=== PATIENT | male | born 1995 | race Two or more races ===

== ENCOUNTER 2019-12-22 22:40 | Emergency (ER) | payer SELFPAY ==
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
== END 2019-12-22 23:30 | disposition home or self-care (01) ==
LOC: JD.ED 22:40
CPT/HCPCS: 99282; 99283

== ENCOUNTER 2020-01-18 06:32 | Emergency (ER) | payer SELFPAY ==
[2020-01-18] MEDS ORDERED: Amoxicillin 500 MG Cap PO ONE (07:17)
[2020-01-18] MEDS ORDERED: Acetaminophen/HYDROcodone 325-5 MG Tab PO ONE (07:17)
--- NOTE | 2020-01-18 07:32 | EDM.PDOC ---
ED HPI GENERAL MEDICAL PROBLEM - General Chief Complaint: ENT Problem Stated Complaint: TOOTH PAIN Time Seen by Provider: 01/18/20 07:01 Source of Information: Reports: Patient, RN Notes Reviewed - History of Present Illness INITIAL COMMENTS - FREE TEXT/NARRATIVE: 24 year old male comes in with dental pain. L lower molar has been giving him trouble for the past month or so. Has become very severe yesterday and today. Has not seen a dentist. Left Lower Tooth/Teeth Pain Score (Numeric/FACES): 10 - Related Data Allergies Allergy/AdvReac Type Severity Reaction Status Date / Time No Known Allergies Allergy Verified 01/18/20 06:40 Home Meds: Home Meds Acetaminophen/HYDROcodone [[place] 325-5 MG] 1 tab PO Q6H PRN #14 tablet 01/18/20 [Rx] Amoxicillin 500 mg PO QID #30 capsule 01/18/20 [Rx] Ibuprofen [Motrin] 800 mg PO 01/18/20 [History] Past Medical History - Past Health History Medical/Surgical History: Denies Medical/Surgical History Social & Family History - Family History Family Medical History: Noncontributory - Tobacco Use Smoking Status *Q: Current Every Day Smoker Years of Tobacco use: 10 Packs/Tins Daily: 0.7 - Caffeine Use Caffeine Use: Reports: None - Recreational Drug Use Recreational Drug Use: No ED ROS ENT - Review of Systems Review Of Systems: See Below Constitutional: Denies: Fever HEENT: Reports: Dental Pain Respiratory: Reports: No Symptoms Cardiovascular: Reports: No Symptoms GI/Abdominal: Reports: No Symptoms Skin: Reports: No Symptoms Neurological: Reports: No Symptoms ED EXAM, ENT - Physical Exam Exam: See Below General Appearance: Alert, Moderate Distress Mouth/Throat: Dental Pain (L lower 2nd molar cavitated) Head: No: Facial Swelling Neck: Supple Respiratory/Chest: No Respiratory Distress, Lungs Clear Extremities: Normal Inspection Neurological: Alert, Oriented, No Motor/Sensory Deficits Skin: Warm, Dry, Normal Color Course - Vital Signs Last Recorded V/S: Last Vital Signs Temp 97.4 F 01/18/20 06:40 Pulse 74 01/18/20 07:45 Resp 19 01/18/20 07:45 BP 127/66 01/18/20 07:45 Pulse Ox 98 01/18/20 07:45 - Orders/Labs/Meds Meds: Medications Discontinued Medications Generic Name Dose Route Start Last Admin Trade Name Freq PRN Reason Stop Dose Admin Hydrocodone Bitart/Acetaminophen 1 tab 01/18/20 07:17 01/18/20 07:43 [place] 325-5 Mg PO 01/18/20 07:18 1 tab ONETIME ONE Administration Amoxicillin 1,000 mg 01/18/20 07:17 01/18/20 07:43 Amoxil PO 01/18/20 07:18 1,000 mg ONETIME ONE Administration Departure - Departure Time of Disposition: 07:26 Disposition: Home, Self-Care 01 Clinical Impression: Dental caries - Discharge Information Prescriptions: Acetaminophen/HYDROcodone [[place] 325-5 MG] 1 tab PO Q6H PRN #14 tablet PRN Reason: Pain Amoxicillin 500 mg PO QID #30 capsule Instructions: Dental Abscess, [id number], Diet and Dental Disease Referrals: PCP,None [Primary Care Provider] - Forms: ED Department Discharge Additional Instructions: Amoxicillin 500 mg 4 times daily, alternate tylenol and ibuprofen for mild to moderate pain or alternate hydrocodone and ibuprophen for severe pain. [facility] See dentist as soon as possible. Sepsis Event Note - Evaluation Sepsis Screening Result: No Definite Risk - Focused Exam Vital Signs: Vital Signs Temp Pulse Resp BP Pulse Ox 01/18/20 07:45 74 19 127/66 98 01/18/20 06:40 97.4 F 76 20 130/80 100 Date Exam was Performed: 01/18/20 Time Exam was Performed: 08:02
== END 2020-01-18 07:45 | disposition home or self-care (01) ==
LOC: JD.ED 06:32
DX: K02.9 Dental caries, unspecified (principal); F17.210 Nicotine dependence, cigarettes, uncomplicated
CPT/HCPCS: 99282; A9270; 99283

== ENCOUNTER 2020-02-14 22:53 | Emergency (ER) | payer SELFPAY ==
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
[2020-02-14] MEDS ORDERED: Ketorolac 30 MG/ML SDV IM ONE (23:50)
--- NOTE | 2020-02-15 08:31 | CR ---
Cervical spine: AP, lateral and odontoid views of the cervical spine were obtained. Comparison: No prior cervical spine imaging. Vertebral body heights and disc spaces are maintained. Prevertebral soft tissues are normal. No subluxation or fracture is identified. Impression: 1. No abnormality is identified on 3 view cervical spine exam. Diagnostic code #1 This report was dictated in MDT
== END 2020-02-15 00:05 | disposition home or self-care (01) ==
LOC: JD.ED 22:53
DX: M54.2 Cervicalgia (principal); R03.0 Elevated blood-pressure reading, without diagnosis of hypertension; Z71.6 Tobacco abuse counseling; F17.210 Nicotine dependence, cigarettes, uncomplicated
CPT/HCPCS: 72040; 72040-26; 96372; 99283-25; J1885

== ENCOUNTER 2020-02-25 17:32 | Emergency (ER) | payer OTHER, MEDICAID ==
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
== END 2020-02-25 18:12 | disposition home or self-care (01) ==
LOC: JD.ED 17:32
DX: S16.1XXA Strain of muscle, fascia and tendon at neck level, initial encounter (principal); S39.012A Strain of muscle, fascia and tendon of lower back, initial encounter; F41.0 Panic disorder [episodic paroxysmal anxiety]; Z79.899 Other long term (current) drug therapy; V43.52XA Car driver injured in collision with other type car in traffic accident, initial encounter; Y92.488 Other paved roadways as the place of occurrence of the external cause
CPT/HCPCS: 99282; 99284

== ENCOUNTER 2020-10-02 14:36 | Emergency (ER) | payer MEDICAID, OTHER ==
[2020-10-02] MEDS ORDERED: Sodium Chloride 0.9% 10 ML Syringe FLUSH PRN (15:29)
[2020-10-02] MEDS ORDERED: LORazepam 2 MG/ML SDV IVPUSH ONE (15:30)
[2020-10-02] MEDS ORDERED: Sodium Chloride 0.9% 1,000 ML IV ONE (15:30)
[2020-10-02] MEDS ORDERED: Metoclopramide 10 MG/2 ML SDV IVPUSH ONE (15:30)
--- NOTE | 2020-10-02 15:42 | EDM.PDOC ---
ED HPI GENERAL MEDICAL PROBLEM - General Chief Complaint: General Stated Complaint: ABDOMINAL PAIN AND VOMITING Time Seen by Provider: 10/02/20 15:12 Source of Information: Reports: Patient, RN Notes Reviewed History Limitations: Reports: No Limitations - History of Present Illness INITIAL COMMENTS - FREE TEXT/NARRATIVE: Patient is a 24-year-old male who presents to the ED for the evaluation of his ongoing abdomen pain, nausea and vomiting/diarrhea. Patient notes that his girlfriend was seen in this ER earlier this morning with similar symptoms treated and sent home. Patient states that he is feeling short of breath, and has a cough, has tingling throughout his entire body, generalized abdomen pain. He notes he has not been able to keep much down for food or fluids for the past 3 days. He has generalized abdomen pain, and feels generalized weakness as well. He has no regular provider that he sees, and he denies any medical history. He denies any abdomen surgeries. Patient notes he has generalized anxiety but does not take any medications at home for this. He states he is feeling quite anxious at today's visit. Abdomen Pain Score (Numeric/FACES): 10 - Related Data Allergies Allergy/AdvReac Type Severity Reaction Status Date / Time No Known Allergies Allergy Verified 02/25/20 17:45 Home Meds: Home Meds predniSONE [Prednisone] 40 mg PO DAILY 02/25/20 [History] Metoclopramide HCl [Reglan] 10 mg PO QID PRN #20 tablet 10/02/20 [Rx] Past Medical History Musculoskeletal History: Reports: Back Pain, Chronic Psychiatric History: Reports: Anxiety, Panic Attack Social & Family History - Family History Family Medical History: No Pertinent Family History - Tobacco Use Tobacco Use Status *Q: Current Every Day Tobacco User Years of Tobacco use: 5 Packs/Tins Daily: 1 - Caffeine Use Caffeine Use: Reports: None - Recreational Drug Use Recreational Drug Use: No - Living Situation & Occupation Living situation: Reports: Single Occupation: Employed ED ROS GENERAL - Review of Systems Review Of Systems: Comprehensive ROS is negative, except as noted in HPI. ED EXAM, GENERAL - Physical Exam Exam: See Below Exam Limited By: No Limitations General Appearance: Alert, WD/WN, No Apparent Distress, Anxious (slight generalized anxiety) Respiratory/Chest: No Respiratory Distress, Lungs Clear, Normal Breath Sounds, No Accessory Muscle Use, Chest Non-Tender Cardiovascular: Normal Peripheral Pulses, Regular Rate, Rhythm, No Murmur GI/Abdominal: Normal Bowel Sounds, Soft, Non-Tender, No Distention, No Mass Extremities: Normal Inspection, Normal Capillary Refill Neurological: Alert, Oriented, Normal Cognition, No Motor/Sensory Deficits Psychiatric: Normal Affect, Normal Mood, Anxious (generalized anxiety) Skin Exam: Warm, Dry, Intact, Normal Color, No Rash Course - Vital Signs Last Recorded V/S: Last Vital Signs Temp 97.7 F 10/02/20 15:09 Pulse 65 10/02/20 15:09 Resp BP Pulse Ox 10 L 10/02/20 15:09 - Orders/Labs/Meds Orders: Active Orders 24 hr Category Date Time Status Peripheral IV Care [RC] . DIRECTED Care 10/02/20 15:29 Ordered Sodium Chloride 0.9% [Saline Flush] Med 10/02/20 15:29 Ordered 10 ml FLUSH ASDIRECTED PRN Peripheral IV Insertion Adult [OM.PC] Routine Oth 10/02/20 15:29 Ordered Medication Orders Sodium Chloride (Saline Flush) 10 ml FLUSH ASDIRECTED PRN PRN Reason: Keep Vein Open Last Admin: 10/02/20 16:27 Dose: 10 ml Documented by: HERMMIC Labs: Laboratory Tests 10/02/20 10/02/20 Range/Units 15:45 15:45 WBC 10.09 H (4.23-9.07) K/mm3 RBC 5.31 (4.63-6.08) M/mm3 Hgb 15.6 (13.7-17.5) gm/dl Hct 45.6 (40.1-51.0) % MCV 85.9 (79.0-92.2) fl MCH 29.4 (25.7-32.2) pg MCHC 34.2 (32.2-35.5) g/dl RDW Std Deviation 39.2 (35.1-43.9) fL Plt Count 251 (163-337) K/mm3 MPV 9.1 L (9.4-12.3) fl Neut % (Auto) 74.4 H (34.0-67.9) % Lymph % (Auto) 14.0 L (21.8-53.1) % [place] % (Auto) 9.1 (5.3-12.2) % Eos % (Auto) 2.2 (0.8-7.0) Baso % (Auto) 0.2 (0.1-1.2) % Neut # (Auto) 7.51 H (1.78-5.38) K/mm3 Lymph # (Auto) 1.41 (1.32-3.57) K/mm3 [place] # (Auto) 0.92 H (0.30-0.82) K/mm3 Eos # (Auto) 0.22 (0.04-0.54) K/mm3 Baso # (Auto) 0.02 (0.01-0.08) K/mm3 Manual Slide Review Normal smear Sodium 138 (136-145) mEq/L Potassium 3.4 L (3.5-5.1) mEq/L Chloride 103 (98-107) mEq/L Carbon Dioxide 21 (21-32) mEq/L Anion Gap 17.4 H (5-15) BUN 11 (7-18) mg/dL Creatinine 1.1 (0.7-1.3) mg/dL Est Cr Clr Drug Dosing 89.30 mL/min Estimated GFR (MDRD) > 60 (>60) mL/min BUN/Creatinine Ratio 10.0 L (14-18) Glucose 113 H (74-106) mg/dL Calcium 9.4 (8.5-10.1) mg/dL Magnesium 1.9 (1.8-2.4) mg/dl Total Bilirubin 0.5 (0.2-1.0) mg/dL AST 17 (15-37) U/L ALT 26 (16-63) U/L Alkaline Phosphatase 61 (46-116) U/L Total Protein 7.3 (6.4-8.2) g/dl Albumin 3.7 (3.4-5.0) g/dl Globulin 3.6 gm/dL Albumin/Globulin Ratio 1.0 (1-2) Meds: Medications Generic Name Dose Route Start Last Admin Trade Name Freq PRN Reason Stop Dose Admin Sodium Chloride 10 ml 10/02/20 15:29 10/02/20 16:27 Saline Flush FLUSH 10 ml ASDIRECTED PRN Administration Keep Vein Open Discontinued Medications Generic Name Dose Route Start Last Admin Trade Name Freq PRN Reason Stop Dose Admin Sodium Chloride 1,000 mls @ 999 mls/hr 10/02/20 15:30 10/02/20 15:56 Normal Saline IV 10/02/20 16:30 999 mls/hr ONETIME ONE Administration Lorazepam 1 mg 10/02/20 15:30 10/02/20 15:56 Ativan IVPUSH 10/02/20 15:31 1 mg ONETIME ONE Administration Metoclopramide HCl 10 mg 10/02/20 15:30 10/02/20 15:56 Reglan IVPUSH 10/02/20 15:31 10 mg ONETIME ONE Administration - Re-Assessments/Exams Free Text/Narrative Re-Assessment/Exam: 10/02/20 15:48 Patient presents to the ED for his ongoing GI illness. We will get IV placed along with IV fluids, Reglan, Ativan for initial management and baseline labs for evaluation. 10/02/20 16:31 Patient's labs are unremarkable, nursing states that he was able to rest in the room comfortably with the nausea meds and the Ativan that was given. Plan is to discharge him home with some nausea medications and have him stick to clear liq uid diet for the next few days. Departure - Departure Time of Disposition: 16:33 Disposition: Home, Self-Care 01 Condition: Good Clinical Impression: Gastroenteritis, Anxiety - Discharge Information *PRESCRIPTION DRUG MONITORING PROGRAM REVIEWED*: No *COPY OF PRESCRIPTION DRUG MONITORING REPORT IN PATIENT SHERRELL: No Instructions: Viral Gastroenteritis, Adult, [id number] Referrals: PCP,None [Primary Care Provider] - Forms: ED Department Discharge Additional Instructions: You have been evaluated in the ED for nausea/vomiting/diarrhea. It is likely that this is caused from a viral gastroenteritis. You have received IV fluid in the ED to help with the dehydration from the vomiting and diarrhea. Over the next 24-48 hours please try to limit diet to clear liquids and advance as tolerate to a bland diet to alleviate symptoms of nausea/vomiting/diarrhea. Please use the Reglan (metaclopromide) QID as needed for nausea. Please return to the ED if your symptoms should change or worsen. Sepsis Event Note (ED) - Evaluation Sepsis Screening Result: No Definite Risk - Focused Exam Vital Signs: Vital Signs Temp Pulse Pulse Ox 10/02/20 15:09 97.7 F 65 10 L - My Orders Last 24 Hours: My Active Orders 10/02/20 15:29 Peripheral IV Care [RC] . DIRECTED Sodium Chloride 0.9% [Saline Flush] 10 ml FLUSH ASDIRECTED PRN Peripheral IV Insertion Adult [OM.PC] Routine - Assessment/Plan Last 24 Hours: My Active Orders 10/02/20 15:29 Peripheral IV Care [RC] . DIRECTED Sodium Chloride 0.9% [Saline Flush] 10 ml FLUSH ASDIRECTED PRN Peripheral IV Insertion Adult [OM.PC] Routine
== END 2020-10-02 17:20 | disposition home or self-care (01) ==
LOC: JD.ED 14:36
DX: K52.9 Noninfective gastroenteritis and colitis, unspecified (principal); F41.9 Anxiety disorder, unspecified; F17.210 Nicotine dependence, cigarettes, uncomplicated
CPT/HCPCS: 36415; 80053; 83735; 85025; 96374; 96375; 99284; J2060; J2765; J7030

== ENCOUNTER 2021-10-06 17:27 | Emergency (ER) | payer SELFPAY ==
[2021-10-06] MEDS ORDERED: Ibuprofen 800 MG Tab PO ONE (18:09)
--- NOTE | 2021-10-06 18:15 | EDM.PDOC ---
ED HPI GENERAL MEDICAL PROBLEM - General Chief Complaint: Fever Stated Complaint: FEVER,BODY ACHES,CHILLS Time Seen by Provider: 10/06/21 17:43 Source of Information: Reports: Patient History Limitations: Reports: No Limitations - History of Present Illness INITIAL COMMENTS - FREE TEXT/NARRATIVE: The patient presents for a cough, fever, and body aches. This all started today. He has a sore throat. He has no nausea or vomiting. He has no shortness of breath. Onset: Gradual Duration: Hour(s): Location: Reports: Generalized Quality: Reports: Ache Severity: Severe Improves with: Reports: None Worsens with: Reports: None Associated Symptoms: Reports: Cough, Fever/Chills. Denies: Chest Pain, Headaches, Nausea/Vomiting, Shortness of Breath Generalized Pain Score (Numeric/FACES): 10 - Related Data Allergies Allergy/AdvReac Type Severity Reaction Status Date / Time No Known Allergies Allergy Verified 10/06/21 17:40 Home Meds: Home Meds Escitalopram [Lexapro] 10 mg PO ASDIRECTED 10/06/21 [History] Oseltamivir [Tamiflu] 75 mg PO BID #9 cap 10/06/21 [Rx] Past Medical History - Past Health History Medical/Surgical History: Denies Medical/Surgical History Musculoskeletal History: Reports: Back Pain, Chronic Neurological History: Reports: Other (See Below) Psychiatric History: Reports: Anxiety, Panic Attack Social & Family History - Family History Family Medical History: No Pertinent Family History - Tobacco Use Tobacco Use Status *Q: Current Every Day Tobacco User Years of Tobacco use: 6 Packs/Tins Daily: 1 - Caffeine Use Caffeine Use: Reports: None - Recreational Drug Use Recreational Drug Use: No - Living Situation & Occupation Living situation: Reports: Single Occupation: Employed ED ROS GENERAL - Review of Systems Review Of Systems: See Below Constitutional: Reports: Fever, Chills, Malaise, Weakness, Fatigue HEENT: Reports: Throat Pain Respiratory: Reports: Cough. Denies: Shortness of Breath Cardiovascular: Reports: No Symptoms Endocrine: Reports: No Symptoms GI/Abdominal: Reports: No Symptoms : Reports: No Symptoms Musculoskeletal: Reports: Muscle Pain ED EXAM, SEPSIS - Physical Exam Exam: See Below Exam Limited By: No Limitations General Appearance: Alert, No Apparent Distress Ears: Normal External Exam Nose: Normal Inspection Throat/Mouth: Normal Inspection Head: Atraumatic, Normocephalic Neck: Normal Inspection Respiratory/Chest: No Respiratory Distress, Lungs Clear, Normal Breath Sounds Cardiovascular: Regular Rate, Rhythm, No Edema, No Murmur GI/Abdominal Exam: Soft, Non-Tender, No Organomegaly, No Mass Back: Normal Inspection Extremities: Normal Inspection Course - Vital Signs Last Recorded V/S: Last Vital Signs Temp 102.2 F H 10/06/21 18:15 Pulse 74 10/06/21 17:38 Resp 14 10/06/21 17:38 BP 126/58 L 10/06/21 17:38 Pulse Ox 98 10/06/21 17:38 - Orders/Labs/Meds Orders: Active Orders 24 hr Category Date Time Status Oseltamivir [Tamiflu] Med 10/06/21 18:55 Once 75 mg PO ONETIME ONE Labs: Laboratory Tests 10/06/21 Range/Units 17:35 Influenza Type A RNA Positive H (NEGATIVE) Influenza Type B RNA Negative (NEGATIVE) SARS-CoV-2 RNA (KUSHAL) Negative (NEGATIVE) Meds: Medications Discontinued Medications Generic Name Dose Route Start Last Admin Trade Name Ramírezq PRN Reason Stop Dose Admin Ibuprofen 800 mg 10/06/21 18:09 10/06/21 18:15 Ibuprofen 800 Mg Tab PO 10/06/21 18:10 800 mg ONETIME ONE Administration - Re-Assessments/Exams Free Text/Narrative Re-Assessment/Exam: 10/06/21 18:14 I ordered motrin 800mg PO, COVID, and influenza. 10/06/21 18:14 10/06/21 18:55 His is COVID negative. His is influenza A positive. I will give him a dose of tamiflu and a prescription for more. Departure - Departure Time of Disposition: 19:00 Disposition: Home, Self-Care 01 Condition: Good Clinical Impression: Influenza A - Discharge Information *PRESCRIPTION DRUG MONITORING PROGRAM REVIEWED*: Not Applicable *COPY OF PRESCRIPTION DRUG MONITORING REPORT IN PATIENT SHERRELL: Not Applicable Prescriptions: Oseltamivir [Tamiflu] 75 mg PO BID #9 cap Forms: ED Department Discharge Additional Instructions: Drink plenty of fluids. Take the tamiflu 75mg 2 times per day for 5 days. Take tylenol or motrin for pain and fever. Please return if you are worse. Sepsis Event Note (ED) - Focused Exam Vital Signs: Vital Signs Temp Temp Pulse Resp BP Pulse Ox 12/26/21 18:15 102.2 F H 10/06/21 17:38 102.2 F H 74 14 126/58 L 98 - My Orders Last 24 Hours: My Active Orders 10/06/21 18:55 Oseltamivir [Tamiflu] 75 mg PO ONETIME ONE - Assessment/Plan Last 24 Hours: My Active Orders 10/06/21 18:55 Oseltamivir [Tamiflu] 75 mg PO ONETIME ONE
[2021-10-06 18:43] LABS: CORONAVIRUS COVID-19 NAA NEGATIVE (NEGATIVE)
[2021-10-06] MEDS ORDERED: Oseltamivir 75 MG Cap PO ONE (18:55)
== END 2021-10-06 19:20 | disposition home or self-care (01) ==
LOC: JD.ED 17:27
DX: J10.1 Influenza due to other identified influenza virus with other respiratory manifestations (principal); Z72.0 Tobacco use; Z20.822 Contact with and (suspected) exposure to COVID-19
CPT/HCPCS: 0240U; 99283; A9270